=== PATIENT | female | born 1995 | race American Indian/Alaskan Native ===

== ENCOUNTER 2017-12-05 15:31 | Emergency (ER) | payer SELFPAY ==
[2017-12-05 15:43] VITALS: BP 108/61
== END 2017-12-05 18:20 | disposition left against medical advice (07) ==
LOC: ED 15:31
DX: R51 Headache (principal); Z53.21 Procedure and treatment not carried out due to patient leaving prior to being seen by health care provider

== ENCOUNTER 2017-12-23 23:36 | Emergency (ER) | payer SELFPAY ==
[2017-12-24 00:22] LABS: Basophils % (Auto) 0.4 % (0.0-1.8); Eosinophils # (Auto) 0.3 K/mm3 (0.0-0.4); Eosinophils % (Auto) 3.5 % (0.0-4.3); Hematocrit 41.6 % (30.3-42.9); Hemoglobin 14.1 gm/dl (10.1-14.3); Lymphocytes # (Auto) 2.1 K/mm3 (1.2-5.4); Lymphocytes % (Auto) 23.7 % (13.4-35.0); Mean Corpuscular HGB Conc 34 % (30-34); Mean Corpuscular Hemoglobin 29 pg (28-32); Mean Corpuscular Volume 86 fl (79-97); Monocytes # (Auto) 0.8 K/mm3 (0.0-0.8); Monocytes % (Auto) 8.6 % (0.0-7.3); Platelet Count 278 K/mm3 (140-440); Red Blood Count 4.85 M/mm3 (3.65-5.03); Red Cell Distribution Width 12.7 % (13.2-15.2)
[2017-12-24 00:45] LABS: Alanine Aminotransferase 11 units/L (7-56); Albumin 4.1 g/dL (3.9-5); BUN/Creatinine Ratio 28; Blood Urea Nitrogen 11 mg/dL (7-17); Calcium 8.8 mg/dL (8.4-10.2); Hemolysis Index 10; Lipase 27 units/L (13-60)
[2017-12-24 05:23] LABS: Bacteria,Urine 1+ /HPF (Negative); Bilirubin,Urine NEG (Negative); Blood,Urine SM (Negative); Color,Urine Yellow (Yellow); Mucus,Urine 1+ /HPF
[2017-12-24 05:24] LABS: WBC,Urine > 182.0 /HPF (0.0-6.0)
[2017-12-24 11:35] VITALS: BP 96/62
[2017-12-24] MEDS ORDERED: BACTRIM DS PO ONE (12:02)
--- NOTE | 2017-12-24 14:42 | Emergency Department Report ---
ED Abdominal Pain HPI - General Chief Complaint: Abdominal Pain Stated Complaint: UPPER ABDOMINAL CHEST PAIN Time Seen by Provider: 12/24/17 08:18 Source: patient Mode of arrival: Ambulatory Limitations: No Limitations - History of Present Illness MD Complaint: abdominal pain Onset/Timin (day) -: Gradual Location: suprapubic Radiation: none Migration to: no migration Severity: moderate Severity scale (0 -10): 10 Quality: sharp Consistency: constant Improves With: nothing Worsens With: nothing Associated Symptoms: dysuria - Related Data Previous Rx's Medication Instructions Recorded Last Taken Type Sulfamethoxazole/Trimethoprim 1 each PO BID #14 tablet 12/24/17 Unknown Rx [Bactrim DS TAB] Allergies Allergy/AdvReac Type Severity Reaction Status Date / Time No Known Allergies Allergy Unverified 12/05/17 15:43 ED Review of Systems ROS: Stated complaint: UPPER ABDOMINAL CHEST PAIN Other details as noted in HPI Comment: All other systems reviewed and negative ED Past Medical Hx - Past Medical History Hx Asthma: Yes Additional medical history: Eczema. Esophageal Stricture - Surgical History Past Surgical History?: No Additional Surgical History: Esophageal Dilation - Social History Smoking Status: Never Smoker Substance Use Type: None - Medications Home Medications: Home Medications Medication Instructions Recorded Confirmed Last Taken Type Sulfamethoxazole/Trimethoprim 1 each PO BID #14 tablet 12/24/17 Unknown Rx [Bactrim DS TAB] ED Physical Exam - General Limitations: No Limitations General appearance: alert, in no apparent distress - Head Head exam: Present: atraumatic, normocephalic - Eye Eye exam: Present: normal appearance - ENT ENT exam: Present: mucous membranes moist - Neck Neck exam: Present: normal inspection - Respiratory Respiratory exam: Present: normal lung sounds bilaterally. Absent: respiratory distress - Cardiovascular Cardiovascular Exam: Present: regular rate, normal rhythm. Absent: systolic murmur, diastolic murmur, rubs, gallop - GI/Abdominal GI/Abdominal exam: Present: soft, tenderness (suprapubic ttp), normal bowel sounds - Extremities Exam Extremities exam: Present: normal inspection - Back Exam Back exam: Present: normal inspection - Neurological Exam Neurological exam: Present: alert, oriented X3 - Psychiatric Psychiatric exam: Present: normal affect, normal mood - Skin Skin exam: Present: warm, dry, intact, normal color. Absent: rash ED Course Vital Signs 12/23/17 12/24/17 12/24/17 23:52 06:33 07:00 Temperature 99.1 F 98.1 F 97.8 F Pulse Rate 97 H 86 81 Respiratory 20 16 16 Rate Blood Pressure 105/59 Blood Pressure 91/48 118/67 [Left] O2 Sat by Pulse 100 100 100 Oximetry 12/24/17 10:33 Temperature Pulse Rate 81 Respiratory 16 Rate Blood Pressure Blood Pressure 96/62 [Left] O2 Sat by Pulse 100 Oximetry ED Medical Decision Making - Lab Data Result diagrams: 12/24/17 00:06 12/24/17 00:06 Critical care attestation.: If time is entered above; I have spent that time in minutes in the direct care of this critically ill patient, excluding procedure time. ED Disposition Clinical Impression: UTI (urinary tract infection) Disposition: DC-01 TO HOME OR SELFCARE Is pt being admited?: No Does the pt Need Aspirin: No Condition: Stable Instructions: Abdominal Pain (ED) Prescriptions: Sulfamethoxazole/Trimethoprim [Bactrim DS TAB] 1 each PO BID #14 tablet Referrals: RENNY GOODWIN MD [Primary Care Provider] - 3-5 Days Time of Disposition: 14:42 Print Language: SCOTTISH
== END 2017-12-24 14:56 | disposition home or self-care (01) ==
LOC: ED 23:36
DX: N39.0 Urinary tract infection, site not specified (principal); J45.909 Unspecified asthma, uncomplicated
CPT/HCPCS: 36415; 80053; 81001; 83690; 84703; 85025; 93005; 93010; 99284

== ENCOUNTER 2018-05-01 13:01 | Emergency (ER) | payer SELFPAY ==
[2018-05-01 13:13] VITALS: BP 111/62
[2018-05-01 13:50] LABS: Basophils % (Auto) 0.7 % (0.0-1.8); Eosinophils # (Auto) 0.4 K/mm3 (0.0-0.4); Eosinophils % (Auto) 6.7 % (0.0-4.3); Hematocrit 39.9 % (30.3-42.9); Hemoglobin 13.5 gm/dl (10.1-14.3); Lymphocytes # (Auto) 2.1 K/mm3 (1.2-5.4); Lymphocytes % (Auto) 36.1 % (13.4-35.0); Mean Corpuscular HGB Conc 34 % (30-34); Mean Corpuscular Hemoglobin 29 pg (28-32); Mean Corpuscular Volume 86 fl (79-97); Monocytes # (Auto) 0.5 K/mm3 (0.0-0.8); Monocytes % (Auto) 8.8 % (0.0-7.3); Platelet Count 255 K/mm3 (140-440); Red Blood Count 4.64 M/mm3 (3.65-5.03); Red Cell Distribution Width 12.9 % (13.2-15.2)
[2018-05-01 14:08] LABS: Alanine Aminotransferase 10 units/L (7-56); BUN/Creatinine Ratio 30; Blood Urea Nitrogen 12 mg/dL (7-17); Calcium 9.1 mg/dL (8.4-10.2); Hemolysis Index 5
[2018-05-01 14:49] LABS: Bilirubin,Urine NEG (Negative); Blood,Urine NEG (Negative); Color,Urine Yellow (Yellow); Mucus,Urine FEW /HPF; Protein,Urine <15 mg/dL mg/dL (Negative)
[2018-05-01] MEDS ORDERED: ANTIVERT PO ONE (14:56)
--- NOTE | 2018-05-01 15:00 | Emergency Department Report ---
Chief Complaint: Chest Pain Stated Complaint: DIZZINESS/CHEST PAIN Time Seen by Provider: 05/01/18 14:45 - HPI History of Present Illness: 22-year-old female presents to the emergency department with complaint of a 3 day history of some lightheadedness and vertigo-like symptoms. She denies any headache, vision change, slurred speech or any other neurological deficits. She has not taken anything for her symptoms prior to presentation. The patient was asked about chest pain while in triage but denies having any chest pain at this time and has not had any for some days. She says that this is been going on intermittently for years and she thinks it is associated with eating greasy food, which she "does all of the time." She has no past medical history. No recent travel or sick contacts at home. She does not have a primary care physician. - ROS Review of Systems: Positive for dizziness/lightheadedness Negative for fever, nausea, vomiting, vision change, headache, slurred speech - Exam Vital Signs: Vital Signs 05/01/18 13:05 Temperature 98.0 F Pulse Rate 85 Respiratory 16 Rate Blood Pressure 111/62 O2 Sat by Pulse 98 Oximetry Physical Exam: Heart and lungs sounds are normal in auscultation. No focal, motor or sensory deficits. Patient does not appear in any acute distress. MSE screening note: Focused history and physical exam performed. Due to findings the following was ordered: Patient has a normal-appearing CBC and BMP. Awaiting the results of the urinalysis and urine test. EKG does not show any signs of ST elevation HI, ischemia or dysrhythmia and is a normal examination. She will be given a dose of meclizine and I am checking a TSH. ED Medical Decision Making - Lab Data Result diagrams: 05/01/18 13:41 05/01/18 13:34 ED Disposition for MSE Condition: Stable
[2018-05-01 15:01] LABS: HCG Qualitative,Urine Negative (Negative)
[2018-05-01 15:02] LABS: WBC,Urine < 1.0 /HPF (0.0-6.0)
--- NOTE | 2018-05-01 16:40 | Emergency Department Report ---
HPI - General Chief Complaint: Chest Pain Time Seen by Provider: 05/01/18 14:45 - HPI HPI: 22-year-old female presents to the emergency department complaint of a 3 day history of lightheadedness and vertigo like symptoms. The symptoms worsen when she goes from sitting to standing or she leans forward too fast. She denies any headache, vision change, slurred speech or any other neurological deficits. She was asked if there is any history of chest pain during triage and she admitted to having some but none currently. She says that it is a chronic issue for her having gone on for years. No recent travel or sick contacts at home. She denies any past medical history. She has not taken anything for her symptoms prior to presentation. She does not have a primary care physician. ED Past Medical Hx - Past Medical History Hx Asthma: Yes Additional medical history: Eczema. Esophageal Stricture - Surgical History Additional Surgical History: Esophageal Dilation - Social History Smoking Status: Never Smoker Substance Use Type: None - Medications Home Medications: Home Medications Medication Instructions Recorded Confirmed Last Taken Type Sulfamethoxazole/Trimethoprim 1 each PO BID #14 tablet 12/24/17 Unknown Rx [Bactrim DS TAB] ED Review of Systems ROS: Stated complaint: DIZZINESS/CHEST PAIN Other details as noted in HPI Comment: All other systems reviewed and negative Constitutional: denies: chills, fever Eyes: denies: eye pain, eye discharge, vision change ENT: denies: ear pain, throat pain Respiratory: denies: cough, shortness of breath, wheezing Cardiovascular: chest pain (intermittent). denies: palpitations Gastrointestinal: denies: abdominal pain, nausea, diarrhea Genitourinary: denies: urgency, dysuria, discharge Musculoskeletal: denies: back pain, joint swelling, arthralgia Skin: denies: rash, lesions Neurological: vertigo, other (lightheaded). denies: headache Physical Exam - Physical Exam Vital Signs: Vital Signs 05/01/18 13:05 Temperature 98.0 F Pulse Rate 85 Respiratory 16 Rate Blood Pressure 111/62 O2 Sat by Pulse 98 Oximetry Physical Exam: GENERAL: The patient is well-developed well-nourished. HENT: Normocephalic. Atraumatic. Patient has moist mucous membranes. EYES: Extraocular motions are intact. Pupils equal reactive to light bilaterally. NECK: Supple. Trachea is midline. CHEST/LUNGS: Clear to auscultation. There is no respiratory distress noted. HEART/CARDIOVASCULAR: Regular. There is no tachycardia. There is no murmur. ABDOMEN: Abdomen is soft, nontender. Patient has normal bowel sounds. There is no abdominal distention. SKIN: Skin is warm and dry. NEURO: The patient is awake, alert, and oriented. The patient is cooperative. The patient has no focal neurologic deficits. The patient has normal speech and gait. Cranial nerves II through XII grossly intact. MUSCULOSKELETAL: There is no tenderness or deformity. There is no limitation range of motion. There is no evidence of acute injury. ED Course Vital Signs 05/01/18 13:05 Temperature 98.0 F Pulse Rate 85 Respiratory 16 Rate Blood Pressure 111/62 O2 Sat by Pulse 98 Oximetry ED Medical Decision Making - Lab Data Result diagrams: 05/01/18 13:41 05/01/18 13:34 - EKG Data -: EKG Interpreted by [place] EKG shows normal: sinus rhythm, axis, intervals, QRS complexes, ST-T waves Rate: normal - EKG Data When compared to previous EKG there are: previous EKG unavailable Interpretation: normal EKG - Medical Decision Making Patient came in with complaint of some lightheadedness and vertigo like symptoms. No chest pain currently. EKG is normal without ST elevation [place], ischemia or dysrhythmia. Labs are mostly unremarkable. Patient was given some Antivert for the vertigo like symptoms. When I went to reassess the patient, she had eloped from the emergency department. - Differential Diagnosis vertigo, orthostatic hypotension, vasovagal, dysrythmia Critical Care Time: No Critical care attestation.: If time is entered above; I have spent that time in minutes in the direct care of this critically ill patient, excluding procedure time. ED Disposition Clinical Impression: Lightheaded, Vertigo Disposition: Z-07 ELOPED Is pt being admited?: No Condition: Stable Referrals: PRIMARY CARE, [Primary Care Provider] - 3-5 Days Time of Disposition: 16:41
== END 2018-05-01 15:00 | disposition left against medical advice (07) ==
LOC: ED 13:01
DX: R42 Dizziness and giddiness (principal); J45.909 Unspecified asthma, uncomplicated
CPT/HCPCS: 36415; 80053; 81001; 81025; 84443; 85025; 93005; 93010; 99283

== ENCOUNTER 2018-12-31 17:17 | Emergency (ER) | payer MEDICAID ==
--- NOTE | 2018-12-31 17:30 | Emergency Department Report ---
Chief Complaint: Upper Respiratory Infection Stated Complaint: CHEST PAIN/UTI/COUGHING UP MUCUS Time Seen by Provider: 12/31/18 17:29 - HPI History of Present Illness: epigastric type pain to chest, burning vomiting mucous for 2 weeks also suprapubic pain and dysuria pmh asthma psh none current menses rx none mse completed MSE screening note: Focused history and physical exam performed. Due to findings the following was ordered: ED Disposition for MSE Condition: Stable
[2018-12-31 18:57] LABS: Bilirubin,Urine NEG (Negative); Blood,Urine LG (Negative); Color,Urine Yellow (Yellow); Mucus,Urine FEW /HPF; Protein,Urine <15 mg/dL mg/dL (Negative); RBC,Urine < 1.0 /HPF (0.0-6.0); Urobilinogen,Urine < 2.0 mg/dL (<2.0)
[2018-12-31 19:04] LABS: HCG Qualitative,Urine Negative (Negative)
--- NOTE | 2018-12-31 19:40 | XRay Report ---
PROCEDURE: XR CHEST ROUTINE 2V HISTORY: asthma and cp FINDINGS: Frontal and lateral views the chest were acquired. The heart is normal in size. There is sc oliosis convex right at T7-T8 of approximately 15 degrees. The lungs appear mildly hyperinflated but clear. The pulmonary vasculature is within normal limits. IMPRESSION: No consolidative infiltrate This document is electronically signed by Omero Sharma MD., December 31 2018 07:38:23 PM ET
--- NOTE | 2018-12-31 21:01 | Emergency Department Report ---
ED General Adult HPI - General Chief complaint: Upper Respiratory Infection Stated complaint: CHEST PAIN/UTI/COUGHING UP MUCUS Time Seen by Provider: 12/31/18 17:29 Source: patient Mode of arrival: Ambulatory Limitations: No Limitations - History of Present Illness Initial comments: 23-year-old female presents emergency department complaining of a near one-week history of epigastric pain that radiates to the chest and the burning sharp fashion, also associated with occasional post tussive vomiting of a mucousy type substance. Pain is primarily present during coughing spells which is experiencing excessive coughing and chest congestion with a sensation of coryza and occasional sensation of wheeziness. Pain is worse with deep breath and range of motion and palpation. Is no fever, chills, sweats, chest pain, palpitations, hemoptysis, hematemesis, hematochezia, or chest, b, palpitations, nausea, vomiting, fever, chills, sweats, hemoptysis, hematemesis, hematochezia, however, says that some dysuria and suprapubic pain off and on as well. There is no chest trauma. Quality: burning Consistency: constant Improves with: none Worsens with: none Associated Symptoms: denies other symptoms. denies: chest pain, cough, f ever/chills, loss of appetite, malaise, nausea/vomiting Treatments Prior to Arrival: none - Related Data Previous Rx's Medication Instructions Recorded Last Taken Type Sulfamethoxazole/Trimethoprim 1 each PO BID #14 tablet 12/24/17 Unknown Rx [Bactrim DS TAB] Ketorolac [Toradol] 10 mg PO Q6H PRN #10 tablet 12/31/18 Unknown Rx Allergies Allergy/AdvReac Type Severity Reaction Status Date / Time No Known Allergies Allergy Unverified 12/05/17 15:43 ED Review of Systems ROS: Stated complaint: CHEST PAIN/UTI/COUGHING UP MUCUS Other details as noted in HPI Constitutional: denies: chills, fever Eyes: denies: eye pain, eye discharge, vision change ENT: denies: ear pain, throat pain Respiratory: denies: cough, shortness of breath, wheezing Cardiovascular: denies: chest pain, palpitations Endocrine: no symptoms reported Gastrointestinal: denies: abdominal pain, nausea, diarrhea Genitourinary: denies: urgency, dysuria, discharge Musculoskeletal: denies: back pain, joint swelling, arthralgia Skin: denies: rash, lesions Neurological: denies: headache, weakness, paresthesias Psychiatric: denies: anxiety, depression Hematological/Lymphatic: denies: easy bleeding, easy bruising ED Past Medical Hx - Past Medical History Hx Asthma: Yes Additional medical history: Eczema. Esophageal Stricture - Surgical History Additional Surgical History: Esophageal Dilation - Social History Smoking Status: Never Smoker Substance Use Type: None - Medications Home Medications: Home Medications Medication Instructions Recorded Confirmed Last Taken Type Sulfamethoxazole/Trimethoprim 1 each PO BID #14 tablet 12/24/17 Unknown Rx [Bactrim DS TAB] Ketorolac [Toradol] 10 mg PO Q6H PRN #10 tablet 12/31/18 Unknown Rx ED Physical Exam - General Limitations: No Limitations General appearance: alert, in no apparent distress - Head Head exam: Present: atraumatic, normocephalic - Eye Eye exam: Present: normal appearance, PERRL, EOMI Pupils: Present: normal accommodation - ENT ENT exam: Present: mucous membranes moist - Neck Neck exam: Present: normal inspection - Respiratory Respiratory exam: Present: normal lung sounds bilaterally, chest wall tenderness (the post adduction and palpatory pain). Absent: respiratory distress - Cardiovascular Cardiovascular Exam: Present: regular rate, normal rhythm. Absent: systolic murmur, diastolic murmur, rubs, gallop - GI/Abdominal GI/Abdominal exam: Present: soft, tenderness (no Portillo sign, no Rovsing, no Klein Fowler), normal bowel sounds. Absent: distended, guarding, rebound, rigid, hyperactive bowel sounds, hypoactive bowel sounds, mass, bruit - Extremities Exam Extremities exam: Present: normal inspection - Back Exam Back exam: Present: normal inspection - Neurological Exam Neurological exam: Present: alert, oriented X3 - Psychiatric Psychiatric exam: Present: normal affect, normal mood - Skin Skin exam: Present: warm, dry, intact, normal color. Absent: rash ED Medical Decision Making - Medical Decision Making 23-year-old female with cough, chest congestion, coryza with his private production and likely having a response to allergens. No active epigastric pain at present. Pain is primarily with coughing spells. No issues during her stay here today and laboratory data sputum fairly benign. Plan is to treat her conservatively and have her follow up should her symptoms worsen. Critical care attestation.: If time is entered above; I have spent that time in minutes in the direct care of this critically ill patient, excluding procedure time. ED Disposition Clinical Impression: Cough, Costochondral chest pain Disposition: TO HOME OR SELFCARE Is pt being admited?: No Does the pt Need Aspirin: No Condition: Stable Instructions: Chest Pain (ED) Additional Instructions: Please [id number] medication for the allergies as we discussed her controlled. The clear mucous drainage and the coughing as we discussed. Utilize her albuterol inhaler during this increased pollinated season and utilize her peak flow meter. Prescriptions: Ketorolac [Toradol] 10 mg PO Q6H PRN #10 tablet PRN Reason: Pain Referrals: TATIANA BOYD MD [Primary Care Provider] - 3-5 Days
== END 2018-12-31 21:20 | disposition home or self-care (01) ==
LOC: ED 17:17
DX: R07.89 Other chest pain (principal); J45.909 Unspecified asthma, uncomplicated
CPT/HCPCS: 71046; 81001; 81025; 99283

== ENCOUNTER 2019-06-03 17:08 | Emergency (ER) | payer SELFPAY ==
--- NOTE | 2019-06-03 17:17 | Event Note ---
ED Screening Note Date of service: 06/03/19 Time: 17:15 ED Screening Note: 23 y o presents with left lower gingival pain x last night causing headache and ear pain This initial assessment/diagnostic orders/clinical plan/treatment(s) is/are subject to change based on patients health status, clinical progression and re- assessment by fellow clinical providers in the ED. Further treatment and workup at subsequent clinical providers discretion. Patient/guardian urged not to elope from the ED as their condition may be serious if not clinically assessed and managed. Initial orders include: motrin clinda
--- NOTE | 2019-06-03 18:00 | Emergency Department Report ---
ED ENT HPI - General Chief complaint: Dental/Oral Stated complaint: LFT SIDE PAIN/LFT SIDE GUM PAIN Time Seen by Provider: 06/03/19 18:00 Source: patient Mode of arrival: Ambulatory Limitations: No Limitations - History of Present Illness Initial comments: Patient is a 23-year-old female Emergency room with complaints of abdominal pain and left lower jaw. Patient states last night. Patient denies fever chills. Patient denies difficulty swallowing. Patient denies discharge. Patient denies headache. Patient denies neck pain. Patient states the pain is an attempt. He states the pain is better with rest and worse with eating. Patient states her last menstrual period was 3 days ago. MD complaint: tooth pain -: Sudden Severity: severe Severity scale (0 -10): 10 Quality: stabbing Consistency: constant Improves with: rest Worsens with: other Associated Symptoms: gum swelling, toothache. denies: fever, cough, pain with swallowing, sore throat, tinnitus, hearing loss, discharge from ear, rhinorrhea - Related Data Previous Rx's Medication Instructions Recorded Last Taken Type Sulfamethoxazole/Trimethoprim 1 each PO BID #14 tablet 12/24/17 Unknown Rx [Bactrim DS TAB] Ketorolac [Toradol] 10 mg PO Q6H PRN #10 tablet 12/31/18 Unknown Rx Amoxicillin/K Clav Tab [Augmentin 1 tab PO Q12HR 10 Days #20 tab 06/03/19 Unknown Rx 875 mg] HYDROcodone/APAP 5-325 [[place] 1 each PO Q4HR PRN #10 tablet 06/03/19 Unknown Rx 5/325] Allergies Allergy/AdvReac Type Severity Reaction Status Date / Time No Known Allergies Allergy Unverified 12/05/17 15:43 ED Dental HPI - General Chief complaint: Dental/Oral Stated complaint: LFT SIDE PAIN/LFT SIDE GUM PAIN Time Seen by Provider: 06/03/19 17:14 Source: patient Mode of arrival: Ambulatory Limitations: No Limitations - Related Data Previous Rx's Medication Instructions Recorded Last Taken Type Sulfamethoxazole/Trimethoprim 1 each PO BID #14 tablet 12/24/17 Unknown Rx [Bactrim DS TAB] Ketorolac [Toradol] 10 mg PO Q6H PRN #10 tablet 12/31/18 Unknown Rx Amoxicillin/K Clav Tab [Augmentin 1 tab PO Q12HR 10 Days #20 tab 06/03/19 Unknown Rx 875 mg] HYDROcodone/APAP 5-325 [[place] 1 each PO Q4HR PRN #10 tablet 06/03/19 Unknown Rx 5/325] Allergies Allergy/AdvReac Type Severity Reaction Status Date / Time No Known Allergies Allergy Unverified 12/05/17 15:43 ED Review of Systems ROS: Stated complaint: LFT SIDE PAIN/LFT SIDE GUM PAIN Other details as noted in HPI Constitutional: denies: chills, fever Eyes: denies: eye pain, eye discharge, vision change ENT: dental pain. denies: ear pain, throat pain Respiratory: denies: cough, shortness of breath, wheezing Cardiovascular: denies: chest pain, palpitations Endocrine: no symptoms reported Gastrointestinal: denies: abdominal pain, nausea, diarrhea Genitourinary: denies: urgency, dysuria, discharge Musculoskeletal: denies: back pain, joint swelling, arthralgia Skin: denies: rash, lesions Neurological: denies: headache, weakness, paresthesias Psychiatric: denies: anxiety, depression Hematological/Lymphatic: denies: easy bleeding, easy bruising ED Past Medical Hx - Past Medical History Previous Medical History?: Yes Hx Asthma: Yes Additional medical history: Eczema. Esophageal Stricture - Surgical History Past Surgical History?: Yes Additional Surgical History: Esophageal Dilation - Family History Family history: no significant - Social History Smoking Status: Never Smoker Substance Use Type: None - Medications Home Medications: Home Medications Medication Instructions Recorded Confirmed Last Taken Type Sulfamethoxazole/Trimethoprim 1 each PO BID #14 tablet 12/24/17 Unknown Rx [Bactrim DS TAB] Ketorolac [Toradol] 10 mg PO Q6H PRN #10 tablet 12/31/18 Unknown Rx Amoxicillin/K Clav Tab [Augmentin 1 tab PO Q12HR 10 Days #20 tab 06/03/19 Unknown Rx 875 mg] HYDROcodone/APAP 5-325 [[place] 1 each PO Q4HR PRN #10 tablet 06/03/19 Unknown Rx 5/325] ED Physical Exam - General Limitations: No Limitations General appearance: alert, in no apparent distress - Head Head exam: Present: atraumatic, normocephalic - Eye Eye exam: Present: normal appearance - ENT ENT exam: Present: mucous membranes moist, other (swelling noted in the lower gums. No abscess noted.) - Neck Neck exam: Present: normal inspection - Respiratory Respiratory exam: Present: normal lung sounds bilaterally. Absent: respiratory distress - Cardiovascular Cardiovascular Exam: Present: regular rate, normal rhythm. Absent: systolic murmur, diastolic murmur, rubs, gallop - GI/Abdominal GI/Abdominal exam: Present: soft, normal bowel sounds - Extremities Exam Extremities exam: Present: normal inspection - Back Exam Back exam: Present: normal inspection - Neurological Exam Neurological exam: Present: alert, oriented X3 - Psychiatric Psychiatric exam: Present: normal affect, normal mood - Skin Skin exam: Present: warm, dry, intact, normal color. Absent: rash ED Course Vital Signs 06/03/19 17:14 Temperature 98.5 F Pulse Rate 88 Respiratory 18 Rate Blood Pressure 111/60 Blood Pressure 111/60 [Right] O2 Sat by Pulse 100 Oximetry - Reevaluation(s) Reevaluation #1: I discussed all clinical findings with patient. I discussed plan of care with patient. Patient agrees with plan of care. Patient is stable for discharge. Patient will be discharged home. Patient given discharge instructions. Patient voiced understanding of discharge instructions 06/03/19 18:22 ED Medical Decision Making - Medical Decision Making Patient is a 23-year-old female that presents to emergency room with dental pain. Patient found to have gingivitis. Patient will be given pain medication and antibiotic. - Differential Diagnosis gingivitis. Dental pain. Toothache Critical care attestation.: If time is entered above; I have spent that time in minutes in the direct care of this critically ill patient, excluding procedure time. ED Disposition Clinical Impression: Pain, dental, Gingivitis Disposition: - TO HOME OR SELFCARE Is pt being admited?: No Does the pt Need Aspirin: No Condition: Stable Instructions: Toothache (ED) Additional Instructions: Patient vault with primary care to 3 days. Patient to follow with dentist within 2 days. Patient to return to ER if condition worsens. Patient take Tylenol or ibuprofen when necessary for Pain. Patient take meds as directed. Patient to increase water. Patient put a warm compress to site. Prescriptions: Amoxicillin/K Clav Tab [Augmentin 875 mg] 1 tab PO Q12HR 10 Days #20 tab HYDROcodone/APAP 5-325 [[place] 5/325] 1 each PO Q4HR PRN #10 tablet PRN Reason: Pain Referrals: HEATHER SHAW MD [Primary Care Provider] - 2-3 Days Time of Disposition: 18:29
[2019-06-03 18:34] VITALS: BP 110/64
== END 2019-06-03 18:33 | disposition home or self-care (01) ==
LOC: ED 17:08
DX: K05.10 Chronic gingivitis, plaque induced (principal); J45.909 Unspecified asthma, uncomplicated

== ENCOUNTER 2019-08-08 14:13 | Emergency (ER) | payer OTHER ==
[2019-08-08 14:48] VITALS: BP 117/78
--- NOTE | 2019-08-08 14:52 | Event Note ---
ED Screening Note Date of service: 08/08/19 Time: 14:48 ED Screening Note: Pt complains of left sided chest pain x yesterday hx of asthma-states doesn't feel like her asthma denies any injury or heavy lifting denies SOB 18 yr old sister with heart issues This initial assessment/diagnostic orders/clinical plan/treatment(s) is/are subject to change based on patients health status, clinical progression and re- assessment by fellow clinical providers in the ED. Further treatment and workup at subsequent clinical providers discretion. Patient/guardian urged not to elope from the ED as their condition may be serious if not clinically assessed and managed. Initial orders include: labs EKG
[2019-08-08 15:20] LABS: Basophils % (Auto) 0.6 % (0.0-1.8); Eosinophils # (Auto) 0.2 K/mm3 (0.0-0.4); Eosinophils % (Auto) 3.3 % (0.0-4.3); Hematocrit 39.7 % (30.3-42.9); Hemoglobin 13.3 gm/dl (10.1-14.3); Lymphocytes # (Auto) 2.4 K/mm3 (1.2-5.4); Lymphocytes % (Auto) 32.6 % (13.4-35.0); Mean Corpuscular HGB Conc 34 % (30-34); Mean Corpuscular Volume 84 fl (79-97); Monocytes # (Auto) 0.6 K/mm3 (0.0-0.8); Monocytes % (Auto) 8.3 % (0.0-7.3); Platelet Count 316 K/mm3 (140-440); Red Blood Count 4.72 M/mm3 (3.65-5.03); Red Cell Distribution Width 13.2 % (13.2-15.2)
[2019-08-08 15:38] LABS: BUN/Creatinine Ratio 18; Blood Urea Nitrogen 7 mg/dL (7-17); Calcium 9.2 mg/dL (8.4-10.2); Hemolysis Index 13
--- NOTE | 2019-08-08 16:35 | XRay Report ---
CHEST 2 VIEWS INDICATION: chest pain. COMPARISON: Chest x-ray from 12/31/2018 FINDINGS: Support devices: None. Heart: Within normal limits. Lungs/pleura: No acute air space or interstitial disease. No pneumothorax. Additional findings: None. IMPRESSION: 1. No acute findings. Signer Name: Wyatt Joseph MD Signed: 08/08/2019 4:30 PM Workstation Name: [id number]
--- NOTE | 2019-08-08 16:39 | Emergency Department Report ---
ED General Adult HPI - General Chief complaint: Chest Pain Stated complaint: CHEST PAIN Time Seen by Provider: 08/08/19 14:47 Source: patient Mode of arrival: Ambulatory Limitations: No Limitations - History of Present Illness Initial comments: Patient is a 23-year-old -Luxembourger female who states that earlier today she started having some chest tightness. Patient states discomfort is on the left side. Patient states that she has some increased pain when she breathes and and breathes out as well as when she moves. Patient states feels very anxious. She denies cough congestion fevers chills nausea vomiting diarrhea also throat at this time. - Related Data Previous Rx's Medication Instructions Recorded Last Taken Type Sulfamethoxazole/Trimethoprim 1 each PO BID #14 tablet 12/24/17 Unknown Rx [Bactrim DS TAB] Ketorolac [Toradol] 10 mg PO Q6H PRN #10 tablet 12/31/18 Unknown Rx Amoxicillin/K Clav Tab [Augmentin 1 tab PO Q12HR 10 Days #20 tab 06/03/19 Unknown Rx 875 mg] HYDROcodone/APAP 5-325 [[place] 1 each PO Q4HR PRN #10 tablet 06/03/19 Unknown Rx 5/325] ALBUTEROL Inhaler (OR & NICU) 2 puff IH QID PRN #1 inhalation 08/08/19 Unknown Rx [ProAir HFA Inhaler] predniSONE [Deltasone] 20 mg PO QDAY #5 tab 08/08/19 Unknown Rx traMADol [Ultram] 50 mg PO Q6HR PRN #10 tablet 08/08/19 Unknown Rx Allergies Allergy/AdvReac Type Severity Reaction Status Date / Time No Known Allergies Allergy Unverified 12/05/17 15:43 ED Review of Systems ROS: Stated complaint: CHEST PAIN Other details as noted in HPI Comment: All other systems reviewed and negative ED Past Medical Hx - Past Medical History Previous Medical History?: Yes Hx Asthma: Yes Additional medical history: Eczema. Esophageal Stricture - Surgical History Past Surgical History?: Yes Additional Surgical History: Esophageal Dilation - Social History Smoking Status: Never Smoker Substance Use Type: None - Medications Home Medications: Home Medications Medication Instructions Recorded Confirmed Last Taken Type Sulfamethoxazole/Trimethoprim 1 each PO BID #14 tablet 12/24/17 Unknown Rx [Bactrim DS TAB] Ketorolac [Toradol] 10 mg PO Q6H PRN #10 tablet 12/31/18 Unknown Rx Amoxicillin/K Clav Tab [Augmentin 1 tab PO Q12HR 10 Days #20 tab 06/03/19 Unknown Rx 875 mg] HYDROcodone/APAP 5-325 [[place] 1 each PO Q4HR PRN #10 tablet 06/03/19 Unknown Rx 5/325] ALBUTEROL Inhaler (OR & NICU) 2 puff IH QID PRN #1 inhalation 08/08/19 Unknown Rx [ProAir HFA Inhaler] predniSONE [Deltasone] 20 mg PO QDAY #5 tab 08/08/19 Unknown Rx traMADol [Ultram] 50 mg PO Q6HR PRN #10 tablet 08/08/19 Unknown Rx ED Physical Exam - General Limitations: No Limitations General appearance: alert, in no apparent distress - Head Head exam: Present: atraumatic, normocephalic - Eye Eye exam: Present: normal appearance - ENT ENT exam: Present: mucous membranes moist - Neck Neck exam: Present: normal inspection - Respiratory Respiratory exam: Present: normal lung sounds bilaterally, chest wall tenderness (left sided). Absent: respiratory distress, wheezes, rales, rhonchi, accessory muscle use - Cardiovascular Cardiovascular Exam: Present: regular rate, normal rhythm, normal heart sounds. Absent: systolic murmur, diastolic murmur, rubs, gallop - GI/Abdominal GI/Abdominal exam: Present: soft, normal bowel sounds. Absent: distended, tenderness, guarding, rebound - Extremities Exam Extremities exam: Present: normal inspection - Back Exam Back exam: Present: normal inspection - Neurological Exam Neurological exam: Present: alert, oriented X3 - Psychiatric Psychiatric exam: Present: normal affect, normal mood - Skin Skin exam: Present: warm, dry, intact, normal color. Absent: rash ED Course Vital Signs 08/08/19 14:18 Temperature 97.6 F Pulse Rate 122 H Respiratory 19 Rate Blood Pressure 117/78 O2 Sat by Pulse 99 Oximetry ED Medical Decision Making - Lab Data Result diagrams: 08/08/19 15:06 08/08/19 15:06 Lab Results 08/08/19 08/08/19 08/08/19 Range/Units 15:06 15:06 15:26 WBC 7.3 (4.5-11.0) K/mm3 RBC 4.72 (3.65-5.03) M/mm3 Hgb 13.3 (10.1-14.3) gm/dl Hct 39.7 (30.3-42.9) % MCV 84 (79-97) fl MCH 28 (28-32) pg MCHC 34 (30-34) % RDW 13.2 (13.2-15.2) % Plt Count 316 (140-440) K/mm3 Lymph % (Auto) 32.6 (13.4-35.0) % [place] % (Auto) 8.3 H (0.0-7.3) % Eos % (Auto) 3.3 (0.0-4.3) % Baso % (Auto) 0.6 (0.0-1.8) % Lymph # 2.4 (1.2-5.4) K/mm3 [place]lier # 0.6 (0.0-0.8) K/mm3 Eos # 0.2 (0.0-0.4) K/mm3 Baso # 0.0 (0.0-0.1) K/mm3 Seg Neutrophils % 55.2 (40.0-70.0) % Seg Neutrophils # 4.0 (1.8-7.7) K/mm3 Sodium 136 L (137-145) mmol/L Potassium 3.3 L (3.6-5.0) mmol/L Chloride 100.6 (98-107) mmol/L Carbon Dioxide 23 (22-30) mmol/L Anion Gap 16 mmol/L BUN 7 (7-17) mg/dL Creatinine 0.4 L (0.7-1.2) mg/dL Estimated GFR > 60 ml/min BUN/Creatinine Ratio 18 % Glucose 91 (65-100) mg/dL Calcium 9.2 (8.4-10.2) mg/dL HCG, Qual Negative (Negative) - EKG Data -: EKG Interpreted by [facility] EKG shows normal: sinus rhythm, axis, intervals, QRS complexes, ST-T waves Rate: normal - EKG Data Interpretation: normal EKG - Radiology Data Fluoro Time In Minutes: CHEST 2 VIEWS INDICATION: chest pain. COMPARISON: Chest x-ray from 12/31/2018 FINDINGS: Support devices: None. Heart: Within normal limits. Lungs/pleura: No acute air space or interstitial disease. No pneumothorax. Additional findings: None. IMPRESSION: 1. No acute findings. Signer Name: Wyatt Joseph MD Signed: 08/08/2019 4:30 PM Workstation Name: [id number] Transcribed By: OBI Dictated By: Wyatt Joseph MD Electronically Authenticated By: Wyatt Joseph MD Signed Date/Time: 08/08/19 1630 - Medical Decision Making Since 23-year-old -Luxembourger female who is presenting with reproducible left-sided chest discomfort. Patient's initially was tachycardic on arrival likely secondary to anxiety however her heart rate did improve into the 80s. Chest x-ray is negative for pneumonia. There is no evidence of any hypertrophic cardiomyopathy. Patient has a O2 sat of 99% and normal heart rate. Does not believe the patient is at risk for pulmonary embolus. Patient be discharged home medications symptomatically. Critical care attestation.: If time is entered above; I have spent that time in minutes in the direct care of this critically ill patient, excluding procedure time. ED Disposition Clinical Impression: Pleurisy Disposition: DC-01 TO HOME OR SELFCARE Is pt being admited?: No Does the pt Need Aspirin: No Condition: Stable Instructions: Pleurisy (ED) Referrals: HEATHER SHAW MD [Referring] - 3-5 Days Time of Disposition: 16:41
== END 2019-08-08 16:53 | disposition home or self-care (01) ==
LOC: ED 14:13
DX: R09.1 Pleurisy (principal); J45.909 Unspecified asthma, uncomplicated; Z79.899 Other long term (current) drug therapy
CPT/HCPCS: 36415; 71046; 80048; 84703; 85025; 93005; 93010

== ENCOUNTER 2019-10-15 14:28 | Emergency (ER) | payer OTHER ==
[2019-10-15 14:36] VITALS: BP 106/68
--- NOTE | 2019-10-15 15:06 | Emergency Department Report ---
Blank Doc - Documentation Documentation: 24-year-old female that presents with urinary symptoms and frequency. This initial assessment/diagnostic orders/clinical plan/treatment(s) is/are subject to change based on patient's health status, clinical progression and re- assessment by fellow clinical providers in the ED. Further treatment and workup at subsequent clinical providers discretion. Patient/guardians urged not to elope from the ED as their condition may be serious if not clinically assessed and managed. Initial orders include: 1- Patient sent to [facility] for further evaluation and treatment 2- UA
[2019-10-15 15:49] LABS: Bilirubin,Urine NEG (Negative); Blood,Urine NEG (Negative); Color,Urine Straw (Yellow); Protein,Urine <15 mg/dL mg/dL (Negative); Urobilinogen,Urine < 2.0 mg/dL (<2.0)
[2019-10-15 15:54] LABS: HCG Qualitative,Urine Negative (Negative)
== END 2019-10-15 19:20 | disposition left against medical advice (07) ==
LOC: ED 14:28
DX: R35.0 Frequency of micturition (principal)
CPT/HCPCS: 81001; 81025; 87086